=== PATIENT | male | born 1945 | race Caucasian/White ===

== ENCOUNTER → 2016-10-21 | Outpatient (CLI) | payer OTHER | LOC: FIMAGING 10:47 | PROVIDERS: ATTEND Orthopaedic Surgery | DX: Z01.818 Encounter for other preprocedural examination (principal); M17.12 Unilateral primary osteoarthritis, left knee ==

== ENCOUNTER 2016-11-18 10:18 | Observation (INO) | payer OTHER ==
[~2016-11-18 10:18] MED LIST: ROPIVACAINE 0.2% 80 MG, EPINEPHrine 0.2 MG, KETOROLAC TROMETHAMINE 30 MG in BAG 0 ML IU ONE; TRANEXAMIC ACID 3,000 MG in NS 50 ML IRR ONE; TRANEXAMIC ACID 3,000 MG/50 ML BAG IRR ONE; VANCOMYCIN 1 GM VIAL ONE
[2016-11-18] MEDS ORDERED: LIDOCAINE 1% 2 ML INJ ID PRN (11:02)
[2016-11-18] MEDS ORDERED: ACETAMINOPHEN 325 MG TAB PO ONE (11:02)
[2016-11-18] MEDS ORDERED: ceFAZolin 2 GM/DEXTROSE 100 ML IV ONE (11:02)
[2016-11-18] MEDS ORDERED: LR 1,000 ML IV ONE (11:02)
[2016-11-18] MEDS ORDERED: FAMOTIDINE 20 MG TAB PO ONE (11:02)
[2016-11-18] MEDS ORDERED: DEXAMETHASONE 4 MG/ML VIAL IVP ONE (11:02)
--- NOTE | 2016-11-18 12:02 | PDHPUP ---
History & Physical Update H&P update statement: This history and physical update is based on an assessment of the patient which was completed after admission or registration (within 24 hours), but prior to the surgery/procedure. H&P update: H&P reviewed & patient examined, no change in patient's condition since H&P completed
[2016-11-18] MEDS ORDERED: PROPOFOL/EMULSION 500 MG/50 ML BOTTLE IV ONE (12:41)
[2016-11-18] MEDS ORDERED: fentaNYL 100 MCG/2 ML INJ ONE (13:19)
[2016-11-18] MEDS ORDERED: PROPOFOL 200 MG/20 ML VIAL ONE (13:38)
[2016-11-18] MEDS ORDERED: ROPIVACAINE HCL 150 MG/30 ML INJ ONE (13:38)
[2016-11-18] MEDS ORDERED: NALOXONE HCL 0.4 MG/ML INJ IVP PRN (13:53)
[2016-11-18] MEDS ORDERED: ONDANSETRON 4 MG/2 ML VIAL IVP PRN ×2 (13:53→14:09)
[2016-11-18] MEDS ORDERED: fentaNYL 100 MCG/2 ML INJ IVP PRN (13:53)
[2016-11-18] MEDS ORDERED: ALBUTEROL 3 ML DEYVIAL IH PRN (13:53)
[2016-11-18] MEDS ORDERED: HYDROmorphONE/DILAUDID 1 MG/ML INJ IVP PRN (13:53)
[2016-11-18] MEDS ORDERED: OXYCODONE/APAP 5/325 TAB PO PRN (13:53)
[2016-11-18] MEDS ORDERED: PROMETHAZINE HCL 25 MG SUPPR PR PRN (14:09)
[2016-11-18] MEDS ORDERED: TEMAZEPAM 15 MG CAP PO PRN (14:09)
[2016-11-18] MEDS ORDERED: LACTULOSE 20 GM/30 ML UDCUP PO PRN (14:09)
[2016-11-18] MEDS ORDERED: DIPHENOXYLATE/ATROPINE LOMOTIL 1 TAB PO PRN (14:09)
[2016-11-18] MEDS ORDERED: POLYETHYLENE GLYCOL 3350 17 GM PKT PO PRN (14:09)
[2016-11-18] MEDS ORDERED: CYCLOBENZAPRINE 10 MG TAB PO PRN (14:09)
[2016-11-18] MEDS ORDERED: METOCLOPRAMIDE 10 MG/2 ML VIAL IVP PRN (14:09)
[2016-11-18] MEDS ORDERED: diphenhydrAMINE 25 MG CAP PO PRN (14:09)
[2016-11-18] MEDS ORDERED: MAGNESIUM HYDROXIDE 30 ML UDCUP PO PRN (14:09)
[2016-11-18] MEDS ORDERED: BISACODYL 10 MG SUPP PR PRN (14:09)
[2016-11-18] MEDS ORDERED: ONDANSETRON DISINTEGRATING 4 MG TAB PO PRN (14:09)
[2016-11-18] MEDS ORDERED: PROMETHAZINE HCL 25 MG/ML INJ IVP PRN (14:09)
--- NOTE | 2016-11-18 14:09 | POSTOPPROG ---
Post Op Note Date of Operation: 11/18/16 Surgeon: Guillermo Lu [place] Supervisor: gary gee Anesthesiologist: ton Anesthesia: IV Sedation, Local (Specify) (adductor canal), Spinal Pre-op Diagnosis: L knee OA Post-op Diagnosis: L knee OA Indication: failed conservative therapies Procedure: L PKA, medial, robot assist Inf/Abcess present in the surg proc area at time of surgery?: No EBL: Minimal
--- NOTE | 2016-11-18 14:21 | POSTANESTH ---
Post Anesthetic Evaluation Cardiovascular Status: Normal, Stable Respiratory Status: Normal, Stable Level of Consciousness/Mental Status: Can Participate in Eval Pain Control: Adequate, Prn Tx Ordered Nausea/Vomiting Control: Adequate, Prn Tx Ordered Complications Possibly Related to Anesthesia: None Noted
[2016-11-18] MEDS ORDERED: LR 1,000 ML IV SCH (14:30)
[2016-11-18] MEDS: ACETAMINOPHEN 325 MG TAB PO SCH ×2 (18:20→23:30)
[2016-11-18 19:54] VITALS: RESP 16
[2016-11-18] MEDS: ASPIRIN 325 MG TAB PO SCH (21:20)
[2016-11-18] MEDS: ceFAZolin 2 GM/DEXTROSE 100 ML IV SCH (21:20)
[2016-11-18] MEDS: FAMOTIDINE 20 MG TAB PO SCH (21:20)
[2016-11-18] MEDS: SENNOSIDES/DOCUSATE SODIUM TAB PO SCH (22:43)
[2016-11-19] MEDS: oxyCODONE IR 5 MG TAB PO PRN ×4 (02:38→10:10)
[2016-11-19] MEDS: ACETAMINOPHEN 325 MG TAB PO SCH ×2 (05:26→12:34)
[2016-11-19] MEDS: ceFAZolin 2 GM/DEXTROSE 100 ML IV SCH (05:28)
[2016-11-19 05:45] LABS: HEMATOCRIT 40.2 % (40.0-51.0); HEMOGLOBIN 13.5 g/dL (13.7-17.5)
--- NOTE | 2016-11-19 05:46 | GOP ---
[f rep st] OPERATIVE REPORT DATE OF OPERATION: 11/18/2016 SURGEON: Mandeep Lu MD RADIO MECHANIC APPRENTICE: Nacho Vo PA-C. ANESTHESIA: Spinal. PREOPERATIVE DIAGNOSIS: Left knee osteoarthritis. POSTOPERATIVE DIAGNOSIS: Left knee osteoarthritis. PROCEDURE PERFORMED: Left medial compartment partial-knee replacement with computer navigation and r obotic assist. FINDINGS: INDICATIONS: This is a 71-year-old male with severe and progressive pain and deformity of the left k nee unresponsive to conservative care. The risks and benefits of surgical intervention were explaine d in detail. DESCRIPTION OF PROCEDURE: The patient was brought to the operating room and placed on the table in s upine position. Spinal anesthesia was induced without difficulty. A pneumatic tourniquet was applie d about the left proximal thigh and the leg was prepped and draped in sterile fashion. Attention was turned first to the distal aspect of the left femur. At 3 cm proximal to the lateral rise of the fe mur, 2 percutaneous half pins were placed for fixation of the femoral array. In a similar fashion, 2 pins were placed anterolateral on the tibia for fixation of the tibial array. External land marking and registration of the hip center was performed without difficulty. After exsanguination by elevation, the tourniquet was inflated to 275 mmHg. Incision was made from the tibial tuberosity to the superior pole of the patella. Dissection was car ried out through the subcutaneous tissue to the deep fascia using Bovie electrocautery for hemostasis . Medial parapatellar arthrotomy was carried out to the superior pole of the patella. The medial co llateral ligament was elevated and the infrapatellar fat pad was resected. Internal femoral and tibi al registration was carried out without difficulty and the femoral and tibial checkpoints were placed and verified for accuracy. Attention was turned to the femur. The foot print for the size 5 femoral component was cut with the 6 mm bur using the [employer] robotic system and verified for accuracy against the CT based plan. The hole was cut for the femoral post. In a similar fashion, the 6 mm bur was used to cut the foot print for t he size 5 tibial component using the MARCUS system and verified for accuracy against the CT based plan. Attention was turned to the posterior aspect of the knee and remnants of the medial meniscus were exc ised. The posterior capsule was injected with ropivacaine, epinephrine and Toradol. Trial reduction was carried out and there was excellent range of motion, alignment and stability using the size 5 fe moral component and the size 5 tibial component, 5 x 10 mm polyethylene. All trials were then removed. The joint was thoroughly irrigated and carefully dried. One package o f cement and 1 gram of vancomycin were mixed in the vacuum mixer and placed on the fixation surfaces of all components. The components were implanted and all excess cement was thoroughly removed. Impla nt placement was verified against the CT view plan and found to be excellent. The tourniquet was deflated and all bleeders were coagulated. The wound was thoroughly irrigated and closed using interrupted sutures of 2-0 Vicryl for the joint capsule. The subcu was closed with 3-0 Vicryl and the skin with 4-0 Monocryl. Dermabond and Steri-Strips were applied, followed by a compr essive dressing. The patient was then moved from the operating room to the recovery room in good con dition, having tolerated the procedure well. PATHOLOGY: Severe medial compartment osteoarthritis. CASE CLASSIFICATION: Clean. /[id number]/MODL
--- NOTE | 2016-11-19 07:50 | SOAPPROG ---
SOAP Progress Note Assessment/Plan: Assessment: Patient is doing well POD 1 s/p L PKA, medial compartment, robot assist. Pain management: pain is well controlled on oral pain meds. VTE ppx: recommend aspirin daily for 3 weeks, cont LIZBET and SCDs Anemia: level is expected initially postop. Asymptomatic. Continue to monitor D/c planning: d/c to home today pending release from PT Plan: 11/19/16 07:47 Objective: Vital Signs Temp Pulse Resp BP Pulse Ox 35.7 C L 68 16 124/88 H 89 L 11/19/16 07:31 11/19/16 07:31 11/19/16 07:31 11/19/16 07:31 11/19/16 07:31 Laboratory Results 11/19/16 04:17 11/18/16 11/19/16 11/20/16 05:59 05:59 05:59 Intake Total 1750 Output Total 930 Balance 820 ICD10 Worksheet Patient Problems: Problems Problem Status Onset Arthritis of knee, left Acute
--- NOTE | 2016-11-19 08:31 | GDS ---
[f rep st] DISCHARGE SUMMARY ADMISSION DIAGNOSIS: Left knee osteoarthritis. DISCHARGE DIAGNOSIS: Left knee osteoarthritis. PROCEDURE: Left partial knee arthroplasty of the medial compartment, robot assist. VTE PROPHYLAXIS: Full-strength aspirin x21 days. BRIEF DESCRIPTION OF HOSPITAL STAY: Patient was admitted for an elective joint arthroplasty. The pa tient tolerated the procedure well and has passed physical therapy. The patient was given appropriat e antibiotic prophylaxis and venous thromboembolism prophylaxis. The patient's pain was well control led on oral pain medication, patient was holding down food, and had urinated. Decision was made to d ischarge the patient. The patient was given post-operative prescriptions pre-operatively. PLAN: Please follow up with Dr. Lu as scheduled on December 07, 2016. /[id number]/MODL
[2016-11-19] MEDS: FAMOTIDINE 20 MG TAB PO SCH (08:49)
[2016-11-19] MEDS: ASPIRIN 325 MG TAB PO SCH (08:50)
[2016-11-19] MEDS ORDERED: PYRIDOSTIGMINE BROMIDE 180 MG TAB.ER PO SCH (09:00)
[2016-11-19] MEDS ORDERED: Tiotropium Br/Olodaterol Hcl [Stiolto Respimat Inhal Spray] IH SCH (09:00)
[2016-11-19] MEDS: SENNOSIDES/DOCUSATE SODIUM TAB PO SCH ×2 (10:05→10:18)
[2016-11-19 12:08] VITALS: BP 121/85; PULSE 66; TEMP 96.9; O2SAT 92
--- NOTE | 2016-11-19 14:07 | ASDISCHSUM ---
Discharge Information Plan Status:Home with No Needs Medically Cleared to Leave: Discharge Date:11/19/2016 01:20 PM CM D/C Disposition:Home, Routine, Self-Care ADT D/C Disposition:Home, Routine, Self-Care Projected Discharge Date:11/19/2016 01:20 PM Transportation at D/C: Discharge Delay Reason: Follow-Up Date:11/19/2016 01:20 PM Discharge Slot: Final Diagnosis: Placement Information Patient Contact Information Contact Name:POLO Relationship: Address: Work Phone: City: [facility] Phone: State/Zip Code: Email: Financial Information Financial Class: Primary Plan Desc:MEDICARE OUTPATIENT Primary Plan Number:[id number] Secondary Plan Desc:TAYLOR SHANNONTY Secondary Plan Number:[id number] Assessment Information Intervention Information
== END 2016-11-19 13:20 | disposition home or self-care (01) ==
LOC: INTOOBSV 10:24 → F3N 10:24
PROVIDERS: ADMIT Orthopaedic Surgery; ATTEND Orthopaedic Surgery
PROC: 8E0Y0CZ Robotic Assisted Procedure of Lower Extremity, Open Approach (ICD-10-PCS; principal; 2016-11-18 13:15)
PROC: 0SRD0J9 Replacement of Left Knee Joint with Synthetic Substitute, Cemented, Open Approach (ICD-10-PCS; principal; 2016-11-18 13:15)
DX: M17.12 Unilateral primary osteoarthritis, left knee (principal)
CPT/HCPCS: 27446; 73560; 97116; 97161; 97165; 97530; C1713; C1776; G8978; G8979; G8980; G8987; G8988; G8989; J0171; J0690; J1100; J1885; J2704; J2795; J3010; J3370